=== PATIENT | male | born 1955 | race Two or more races ===

== ENCOUNTER 2025-03-05 07:10 | Day surgery (SDC) | payer OTHER, SELFPAY ==
[2025-03-05] VITALS (14 sets, daily range): BP systolic 139–173; BP diastolic 80–99; PULSE 60–79; RESP 12–20; TEMP 36.1–36.3; O2SAT 92–99; BMI 29.6
--- NOTE | 2025-03-05 07:37 | EKG_ITS ---
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
[2025-03-05 08:16] LABS: Basophils # (Auto) 0.1 Thou/mm3 (0.0-0.2); Basophils % (Auto) 1 % (0-2.5); Eosinophils # (Auto) 0.3 Thou/mm3 (0.0-0.5); Eosinophils % (Auto) 4 % (0-10); Hematocrit 45.9 % (41.0-53.0); Hemoglobin 15.0 g/dL (13.5-16.0); Immature Granulocytes Auto 0.03 Thou/mm3 (0.00-0.00); Lymphocytes # (Auto) 2.1 Thou/mm3 (1.0-4.8); Lymphocytes % (Auto) 26 % (10-50); Mean Corpuscular HGB Conc 32.7 g/dl (31.0-37.0); Mean Corpuscular Hemoglobin 26.9 pg (25.0-35.0); Mean Corpuscular Volume 82 fL (80-100); Monocytes # (Auto) 0.7 Thou/mm3 (0.0-0.8); Monocytes % (Auto) 9 % (0-12); Neutrophils # (Auto) 5.1 Thou/mm3 (1.8-7.7); Neutrophils % (Auto) 61 % (37-80); Nucleated Red Blood Cell # 0.00 Thou/mm3 (0.00-0.00); Nucleated Red Blood Cell % 0 /100 WBC (0); Platelet Count 230 Thou/mm3 (140-440); RDW Standard Deviation 58.4 fL (35.1-43.9); Red Blood Count 5.58 Miln/mm3 (4.50-5.90); White Blood Count 8.3 Thou/mm3 (3.8-10.6)
[2025-03-05] MEDS: RINGERS LACTATED 1000 ML 1,000 ML 20 ML IV (08:23)
[2025-03-05 08:31] LABS: Alanine Aminotransferase 22 U/L (10-49); Albumin, Serum 4.5 gm/dL (3.4-4.8); Albumin/Globulin Ratio 1.7 (1.2-2.2); Alkaline Phosphatase 82 U/L (46-116); Anion Gap 8 (7-16); Aspartate Amino Transferase 25 U/L (0-34); BUN/Creatinine Ratio 14 Ratio (12-20); Bilirubin,Total 0.5 mg/dL (0.3-1.2); Blood Urea Nitrogen 19 mg/dL (9-23); Calcium 9.5 mg/dL (8.3-10.6); Calcium (Corrected) 9.5 mg/dL (8.5-10.1); Carbon Dioxide 29.1 mMol/L (20.0-31.0); Chloride 104 mMol/L (98-107); Creatinine (Component) 1.4 mg/dL (0.6-1.3); Estimated Creatinine Clearance 53.8 mL/min (>60); Globulin 2.7 gm/dL (2.3-3.5); Glucose 101 mg/dL (74-106); Osmolality,Calculated 283 (275-295); Potassium 3.8 mMol/L (3.4-5.1); Sodium 141 mMol/L (136-145); Total Protein 7.2 gm/dL (5.7-8.2); eGFR 54 See Note
[2025-03-05 08:53] LABS: INR 1.2 (0.9-1.3); Partial Thromboplastin Time 27.4 Seconds (22.0-36.0); Prothrombin Time 12.6 Seconds (9.0-12.2)
[2025-03-05] MEDS: ALBUTEROL RT 2.5 MG/3 ML NEBU INH (09:25)
--- NOTE | 2025-03-05 11:04 | SUR.PHASEI ---
pt received from OR in recovery bay 5. pt asleep but responds to voice, breathing unlabored on room air. v/s stable. pt dressing to left lower abd cdi. report received from Dr. Ford and Alexus VAZQUEZ.
--- NOTE | 2025-03-05 11:19 | PD.SUROPNT ---
Date of Procedure 03/05/25 Pre Op Diagnosis Recurrent left inguinal hernia Post Op Diagnosis Same Procedure Attempted repair of the recurrent left inguinal hernia Findings Patient was found to have recurrent left inguinal hernia which seems to be incarcerated. Patient also has had right inguinal hernia which is also recurrent. I advised him to undergo repair of the left inguinal hernia under general anesthesia and then possibly a right inguinal hernia Procedure Description Of the patient was brought to the operating room endotracheal anesthesia was given. Renteria catheter was inserted. Abdomen and the groin area was washed with ChloraPrep solution and draped in a sterile manner. Timeout was performed. Then I made a standard left groin incision there is external oblique. This was opened and I found out that the patient has had extensive adhesions because of the mesh placed medially in the suprapubic region. The left side of the scrotum was swollen but any attempts to reduce this was unsuccessful. I opened what appeared to be the sac and found out that the patient had omentum going into that area which was firmly adherent to the mesh. I could not pull out the omentum from the scrotal region. There was extensive adhesion that happened as a result of previous surgery. There were no small bowel loops involved. There is no definite hernial sac that I could dissect out and repair it. At this time I decided not to proceed with the any further dissection for fear of causing injury to the femoral vein and to the blood vessels. Since bowel was not involved in the hernia I felt that it is best to close him up and refer him to a tertiary Medical Center in future if this hernia becomes problematic. I therefore closed the layer keeping the omentum inside with a running 2-0 Prolene. The cord structures were placed also along the closure and then the external oblique was closed with 2-0 Vicryl running suture. Subcutaneous tissue was closed with 3-0 chromic and the skin was closed with 4-0 Monocryl subcuticular stitch and dressing was applied with Adaptic and 4 x 4 gauze. Patient tolerated the procedure well and left operating room in stable condition. The finding in the operating room was discussed with his daughter and she understands clearly the outcome. Anesthesia GETA Pathology / specimen None IVF Infused 800 Estimated Blood Loss 10 Condition Stable Disposition PACU Surgeon Sabrina Acevedo MD Surgical Staff Operation Date: 03/05/25 09:00 Case Staff Anesthesiologist: Ryley Ford RN First Assistant: Shannan Louise
--- NOTE | 2025-03-05 11:33 | SUR.PHASEI ---
pt able to tolerate oral fluids without difficulty swallowing or nausea/vomiting.
--- NOTE | 2025-03-05 12:09 | SUR.PHASEII ---
pt awake, alert, able to follow commands, breathing unlabored, dressing to left lower abdomen clean, dry, and intact, VS stable, report from Romario VAZQUEZ
--- NOTE | 2025-03-05 12:42 | SUR.PHASEII ---
Report to Romario VAZQUEZ
--- NOTE | 2025-03-05 13:31 | SUR.PHASEII ---
pt awake and alert, breathing unlabored on room air. v/s stable. pt dressing to lower left abd cdi. pt able to ambulate to wheelchair with steady gait. d/c instructions given daughter Sherine in room using vulcanizer Isela Romo, all questions answered. pt d/c via wheelchair with all belongings.
== END 2025-03-05 13:31 | disposition home or self-care (01) ==
PROVIDERS: PCP Family Medicine; Referring Provider Surgery; Visit Provider Surgery
PROC: (CPT 49521; principal; 2025-03-05 08:45)
DX: K40.31 Unilateral inguinal hernia, with obstruction, without gangrene, recurrent (principal); K66.0 Peritoneal adhesions (postprocedural) (postinfection); I10 Essential (primary) hypertension; J45.909 Unspecified asthma, uncomplicated; Z86.73 Personal history of transient ischemic attack (TIA), and cerebral infarction without residual deficits
CPT/HCPCS: 49521; 36415; 80053; 85025; 85610; 85730; 93005; A4649; J0131; J0461; J1100; J2250; J2405; J2704; J3010; J3490; J7120; A9270